=== PATIENT | male | born 1980 | race Two or more races ===

== ENCOUNTER → 2019-09-13 | Outpatient (CLI) | payer MEDICARE ==
--- NOTE | 2019-09-13 16:03 | XR ---
EXAMINATION TYPE: XR chest 2V DATE OF EXAM: 09/13/2019 COMPARISON: NONE HISTORY: Cough and shortness of breath TECHNIQUE: Frontal and lateral views of the chest are obtained. FINDINGS: Patient is rotated. Lung volumes are increased. There is no focal air space opacity, pleura l effusion, or pneumothorax seen. The cardiac silhouette size is small, there is increased retroster nal airspace. The osseous structures are intact, there is a mild spinal curvature. Thoracic spondyl osis is present. Right hemidiaphragm mildly elevated. IMPRESSION: There may be underlying emphysema, COPD. Additional findings above, chest CT may be of b enefit.
== END ==
LOC: RADXRYALE 13:07
PROVIDERS: ATTEND Internal Medicine
DX: R05 Cough (principal)
CPT/HCPCS: 71046

== ENCOUNTER → 2024-06-04 | Outpatient (CLI) | payer MEDICARE ==
--- NOTE | 2024-06-04 13:40 | XR ---
EXAMINATION TYPE: XR chest 2V DATE OF EXAM: 06/04/2024 1:20 PM CLINICAL INDICATION: Male, 44 years old with history of J449 COPD; [facility] COMPARISON: None TECHNIQUE: XR chest 2V Frontal view of the chest. FINDINGS: Lungs/Pleura: There is no evidence of pleural effusion, focal consolidation, or pneumothorax. Pulmonary vascularity: Unremarkable. Heart/mediastinum: Cardiomediastinal silhouette is unremarkable. Musculoskeletal: No acute osseous pathology. Other findings: None IMPRESSION: No acute cardiopulmonary disease/process. [facility], , 06/04/2024 1:37 PM
== END | disposition home or self-care (01) ==
LOC: RADXRYALE 12:11
PROVIDERS: ATTEND Internal Medicine
DX: J44.9 Chronic obstructive pulmonary disease, unspecified (principal)
CPT/HCPCS: 71046